=== PATIENT | male | born 1940 | race Caucasian/White ===

== ENCOUNTER 2017-02-07 10:30 | Emergency (ER) | payer MEDICARE, BC ==
[~2017-02-07] VITALS: Ht 175.3 cm; Wt 75.0 kg
[~2017-02-07 10:30] MED LIST: ASPIRIN 32325 MG/TA1 PO; CIPRO 500MG TA500 MG PO; ZOCOR 20MG20 MG PO
[2017-02-07 10:37] VITALS: TEMP 98
[2017-02-07 11:32] LABS: BASO % 0.3 % (0.0-2.0); EOS % 0.1 % (0-4.0); GRAN # 11.2 (1.4-6.5); GRAN % 79.3 % (42.2-75.2); HEMATOCRIT 47.5 % (42.0-52.0); HEMOGLOBIN 16.5 g/dl (13.5-18.0); LYMPH # 2.3 (1.2-3.4); MEAN CELL VOLUME 91 fl (80.0-100.0); MEAN CORPUSCULAR HEMOGLOBIN 32 pg (27.0-31.0); MEAN CORPUSCULAR HGB CONC 35 g/dl (33.0-37.0); MEAN PLATELET VOLUME 10.3 fl (7.4-10.4); MONO # 0.5 (0.1-0.6); MONO % 3.8 % (1.7-9.3); PLATELET COUNT 187 K/mm3 (130-400); RED BLOOD COUNT 5.23 M/mm3 (4.20-5.60); REDCELL DISTRIBUTION WIDTH-CV 13.3 % (11.5-14.5); WHITE BLOOD COUNT 14.2 K/mm3 (4.8-10.8)
[2017-02-07] MEDS ORDERED: ASPIRIN 81M81 MG/TA2 PO (11:42)
[2017-02-07] MEDS ORDERED: LIPITOR 40MG TA40 MG PO (11:42)
[2017-02-07 11:52] LABS: ADJUSTED CALCIUM 9.1 mg/dL (8.4-10.2); ALANINE AMINOTRANSFERASE 33 U/L (21-72); ALBUMIN 4.7 gm/dL (3.5-5.0); ALKALINE PHOSPHATASE 77 U/L (50-136); ANION GAP 14 mmol/L (7-16); BILIRUBIN,TOTAL 2.4 mg/dL (0.0-1.0); BLOOD UREA NITROGEN 23 mg/dL (9-20); C-REACTIVE PROTEIN < 0.5 mg/dL (0.0-0.9); CALCIUM 9.7 mg/dL (8.4-10.2); CARBON DIOXIDE 19 mmol/L (22-30); CHLORIDE 105 mmol/L (98-107); CREATININE, serum 1.06 mg/dL (0.66-1.25); GLUCOSE 130 mg/dL (74-106); LIPASE 63 U/L (23-300); SODIUM 138 mmol/L (137-145)
[2017-02-07 13:15] LABS: PH 8 (5-8); SQUAMOUS EPITHELIAL None Seen /hpf; URINE APPEARANCE Clear; URINE BACTERIA None Seen /hpf; URINE BILIRUBIN Negative (NEGATIVE); URINE BLOOD 1+ (NEGATIVE); URINE COLOR Yellow; URINE GLUCOSE Negative (NEGATIVE); URINE KETONE Trace (NEGATIVE); URINE UROBILINOGEN Negative (NEGATIVE); URINE WBC 0-2 /hpf
[2017-02-07] MEDS ORDERED: NORCO 325 MG-51 TAB PO (13:30)
[2017-02-07 13:33] VITALS: BP 130/55; PULSE 74
== END 2017-02-07 13:42 | disposition home or self-care (01) ==
LOC: COL.ER 10:30
PROVIDERS: Family Medicine
DX: N20.1 Calculus of ureter (principal)
CPT/HCPCS: J1170; J1885; J2405; J3010; J7030; Q9967

== ENCOUNTER → 2018-05-24 | Outpatient (CLI) | payer MEDICARE, BC ==
[~2018-05-24] MED LIST changes: +ASPIRIN 81M81 MG/TA2 PO; +LIPITOR 40MG TA40 MG PO; +NORCO 325 MG-51 TAB PO
== END ==
LOC: COL.RAD 09:07
DX: I71.4 Abdominal aortic aneurysm, without rupture (principal)

== ENCOUNTER 2018-11-26 16:51 | Observation (INO) | payer MEDICARE, BC ==
[~2018-11-26] VITALS: Ht 175.3 cm; Wt 75.2 kg
--- NOTE | 2018-11-26 17:30 | NUR ---
Pt arrived to room 317 ambulatory. Pt oriented to room and call light system. Will complete assessment. Dr. Orozco at the bedside. Will complete assessment.
[2018-11-26 17:34] LABS: HEMATOCRIT 41.2 % (42.0-52.0); HEMOGLOBIN 13.9 g/dl (13.5-18.0); MEAN CELL VOLUME 94 fl (80.0-100.0); MEAN CORPUSCULAR HEMOGLOBIN 32 pg (27.0-31.0); MEAN CORPUSCULAR HGB CONC 34 g/dl (33.0-37.0); MEAN PLATELET VOLUME 9.1 fl (7.4-10.4); PLATELET COUNT 211 K/mm3 (130-400); RED BLOOD COUNT 4.39 M/mm3 (4.20-5.60); REDCELL DISTRIBUTION WIDTH-CV 13.5 % (11.5-14.5)
[2018-11-26 17:44] LABS: ALBUMIN 3.9 gm/dL (3.5-5.0); BILIRUBIN,TOTAL 0.9 mg/dL (0.0-1.0); CALCIUM 9.2 mg/dL (8.4-10.2); CREATININE, serum 0.75 (0.66-1.25); POTASSIUM 4.5 mmol/L (3.4-5.0); TOTAL PROTEIN 6.6 gm/dL (6.4-8.2)
[2018-11-26 17:45] LABS: IRON,SERUM 167 ug/dL (35-150)
[2018-11-26 17:54] LABS: TOTAL IRON BINDING CAPACITY 305 ug/dL (261-462)
[2018-11-26] MEDS ORDERED: PRIL40 PO (17:56)
[2018-11-26 18:01] VITALS: BP 124/69; PULSE 91; TEMP 98.2
--- NOTE | 2018-11-26 18:54 | NUR ---
Since arriving to the floor the pt has been resting on and off. He has denied pain. He is sitting up in the bed waiting for his dinner to arrive and he denies further needs. Call light within reach. Report given to NATALYA Loo.
[2018-11-26 19:15] VITALS: BP 115/64; PULSE 98; TEMP 98
--- NOTE | 2018-11-26 19:44 | NUR ---
Patient resting in bed. Assessment completed- lungs clear, abdominal soundsa ctive, pulses +3, cap refill <3 seconds, no reports of pain. Discussed NPO status at midnight. Pt alert, oriented, and independent. Has no further needs at this time.
[2018-11-26 23:59] VITALS: BP 105/59; PULSE 79; TEMP 97.6
[2018-11-27] VITALS (9 sets, daily range): BP systolic 92–119; BP diastolic 45–60; PULSE 66–77; TEMP 97.5–98.3
--- NOTE | 2018-11-27 05:03 | NUR ---
Pt slept for most of the night, VSS, no reports of pain overnight. No needs at this time.
--- NOTE | 2018-11-27 06:44 | NUR ---
Report given to NATALYA Cook.
[2018-11-27 08:23] LABS: HEMOGLOBIN 12.3 g/dl (13.5-18.0)
[2018-11-27 08:24] LABS: HEMATOCRIT 35.6 % (42.0-52.0)
--- NOTE | 2018-11-27 08:35 | NUR ---
Assessment completed, alert/oriented, vital signs stable, denies any pain or discomfort, abdomen is soft/ BS+, reported having another dark stool this morning, hemaglobin stable/ this morning labs is pending, heart RRR/distal pulses are palpable, scheduled for EGD at 1300 / consent is signed, he has been NPO, he is resting quietly in bed and denies other needs at this time
--- NOTE | 2018-11-27 12:00 | NUR ---
Patient going down to [facility] for EGD at [facility]
--- NOTE | 2018-11-27 12:11 | NUR ---
Initial visit; Patient thanked Bundle Shaker for looking in on him and offering God's blessings.
--- NOTE | 2018-11-27 13:33 | NUR ---
Patient arrived back to Medical floor from [facility] at this time, he is alert/oriented but drowsy, vital signs stable, will continue to monitor
--- NOTE | 2018-11-27 14:10 | NUR ---
TEJAL and SW student met with the patient to discuss discharge plan. The patient lives in [place] with his , Hilaria. He reports independence with ADLs and does not use any DME. The patient's PCP is Dr. Orozco and he receives his medications at [facility]. He reports no difficulties obtaining his meds. The patient does not have advanced directives, but he was interested in obtaining a DPOA-HC form for himself and his . TEJAL provided. The patient plans to return home with his upon discharge. No additional needs at this time.
--- NOTE | 2018-11-27 19:03 | NUR ---
Report received from NATALYA Cook
--- NOTE | 2018-11-27 19:58 | NUR ---
Resting in bed. Assessment complete. Lungs clear. Heart sounds normal. Bowels active x4. Pulses strong throughout. No edema noted. Denies pain. Denies needs at this time. INT to right hand flushes without complications.
--- NOTE | 2018-11-27 23:54 | NUR ---
Resting in bed. Denies pain. Denies needs. Call light in reach.
[2018-11-28 00:33] VITALS: BP 98/48; PULSE 78; TEMP 97.7
--- NOTE | 2018-11-28 04:04 | NUR ---
Resting in bed. Denies needs. Call light in reach.
[2018-11-28 05:14] VITALS: BP 108/58; PULSE 83; TEMP 97.5
--- NOTE | 2018-11-28 06:02 | NUR ---
Patient had uneventful night. Resting in bed this AM. Call light in reach.
[2018-11-28 06:05] LABS: HEMOGLOBIN 11.4 g/dl (13.5-18.0)
[2018-11-28 06:09] LABS: HEMATOCRIT 33.6 % (42.0-52.0)
--- NOTE | 2018-11-28 06:43 | NUR ---
Report given to NATALYA Cook
[2018-11-28 07:03] VITALS: BP 114/57; PULSE 72; TEMP 97.8
--- NOTE | 2018-11-28 07:55 | NUR ---
Pt is currently lying in bed with HOB elevated A&O x4. Pt remains on RA w/ no c/o of SOA at this time. Pt has no c/o pain and requested apple juice for breakfast until clar liquid diet is d/c'd. Pt is anxious for physcian to make rounds so that pt has clarificaton on d/c time and date. Pt has no further requests at this time. Call light in reach, bed in lowest position, bed rails in place x2.
[2018-11-28] MEDS ORDERED: PROTONIX 40MG T40 MG PO (09:41)
[2018-11-28] MEDS ORDERED: NATURAL IRON65 MG PO (09:41)
--- NOTE | 2018-11-28 11:37 | NUR ---
discharge isntructions reviewed with the patient, instructed to follow up with as scheduled, instructed to take meds as prescribed/ ordered, HOLD ASA for now, IV removed, also explained to have H&H checked on saturday 12/02, also explained that with taking iron supplement he may notice more dark stools and this is likely related to the iron, denies needs, verbalized understanding of instrucitons, DIRECTOR STERILE PROCESSING escorted him out to the vehicle
--- NOTE | 2018-11-28 12:16 | NUR ---
Primary nurse was assisted with [id number] patient care by [employer] student Alesha Kenny and [employer] instructor Carmina Mari RN-.
== END 2018-11-28 11:39 | disposition home or self-care (01) ==
LOC: MEDICAL 16:51
PROVIDERS: ADMIT Emergency Medicine
DX: K26.7 Chronic duodenal ulcer without hemorrhage or perforation (principal); D50.0 Iron deficiency anemia secondary to blood loss (chronic); K92.1 Melena; Z85.46 Personal history of malignant neoplasm of prostate; E78.5 Hyperlipidemia, unspecified; G43.909 Migraine, unspecified, not intractable, without status migrainosus; K29.70 Gastritis, unspecified, without bleeding; N52.9 Male erectile dysfunction, unspecified; J30.9 Allergic rhinitis, unspecified; M19.90 Unspecified osteoarthritis, unspecified site; G47.33 Obstructive sleep apnea (adult) (pediatric); K21.9 Gastro-esophageal reflux disease without esophagitis
CPT/HCPCS: C9113; G0378; J2250; J3010

== ENCOUNTER 2020-11-18 21:02 | Observation (INO) | payer MEDICARE, BC ==
[~2020-11-18] VITALS: Ht 175.3 cm; Wt 75.0 kg
[~2020-11-18 21:02] MED LIST changes: +NATURAL IRON65 MG PO; +PRIL40 PO; +PROTONIX 40MG T40 MG PO
[2020-11-18 21:26] LABS: BASO % 0.3 % (0.0-2.0); EOS # 0.3 (0.0-0.7); EOS % 2.8 % (0-4.0); GRAN # 4.5 (1.4-6.5); GRAN % 48.2 % (42.2-75.2); HEMATOCRIT 46.3 % (42.0-52.0); LYMPH # 3.8 (1.2-3.4); LYMPH % 40.3 % (20.0-51.0); MEAN CELL VOLUME 87 fl (80.0-100.0); MEAN CORPUSCULAR HEMOGLOBIN 28 pg (27.0-31.0); MEAN CORPUSCULAR HGB CONC 32 g/dl (33.0-37.0); MEAN PLATELET VOLUME 8.8 fl (7.4-10.4); MONO # 0.8 (0.1-0.6); MONO % 8.1 % (1.7-9.3); PLATELET COUNT 251 K/mm3 (130-400)
[2020-11-18 21:37] LABS: INR 1.1 (0.8-3.0); PROTHROMBIN TIME 12.3 SECONDS (9.7-12.8)
[2020-11-18 21:38] LABS: ALANINE AMINOTRANSFERASE 30 U/L (4-49); ALBUMIN 4.3 gm/dL (3.5-5.0); ALKALINE PHOSPHATASE 73 U/L (50-136); ANION GAP 11 mmol/L (7-16); AST,SGOT 45 U/L (15-37); BILIRUBIN,TOTAL 0.6 mg/dL (0.0-1.0); BLOOD UREA NITROGEN 25 mg/dL (9-20); CALCIUM 9.4 mg/dL (8.4-10.2); CARBON DIOXIDE 28 mmol/L (22-30); CHLORIDE 103 mmol/L (98-107); CREATINE KINASE 144 U/L (55-170); CREATININE, serum 0.83 (0.66-1.25); GLUCOSE 116 mg/dL (74-106); LIPASE 96 U/L (23-300); POTASSIUM 3.5 mmol/L (3.4-5.0); SODIUM 141 mmol/L (137-145); TOTAL PROTEIN 7.6 gm/dL (6.4-8.2)
[2020-11-18 21:51] LABS: TROPONIN-I < 0.012 ng/mL (0.000-0.035)
[2020-11-19] MEDS ORDERED: TYLENOL 325MG325 MG PO (01:04)
[2020-11-19 06:45] VITALS: BP 126/76; PULSE 63
[2020-11-19 07:52] LABS: HEMATOCRIT 43.6 % (42.0-52.0); MEAN CELL VOLUME 88 fl (80.0-100.0); MEAN CORPUSCULAR HEMOGLOBIN 28 pg (27.0-31.0); MEAN CORPUSCULAR HGB CONC 32 g/dl (33.0-37.0); PLATELET COUNT 208 K/mm3 (130-400); RED BLOOD COUNT 4.93 M/mm3 (4.20-5.60); REDCELL DISTRIBUTION WIDTH-CV 14.1 % (11.5-14.5)
[2020-11-19 08:12] LABS: ANION GAP 5 mmol/L (7-16); BLOOD UREA NITROGEN 19 mg/dL (9-20); CALCIUM 8.7 mg/dL (8.4-10.2); CARBON DIOXIDE 27 mmol/L (22-30); CHLORIDE 106 mmol/L (98-107); CHOLESTEROL 152 mg/dL (120-200); CREATININE, serum 0.69 (0.66-1.25); GLUCOSE 110 mg/dL (74-106); HDL CHOLESTEROL 30 mg/dL; LDL CHOLESTEROL 99 mg/dL; POTASSIUM 3.9 mmol/L (3.4-5.0); SODIUM 138 mmol/L (137-145); TRIGLYCERIDE 116 mg/dL
--- NOTE | 2020-11-19 08:20 | NUR ---
Patient to room from ER via wheelchair. Transfers self from wheelchair to bed. Alert and oriented x4. Denies pain. Patient had removed his IV himself when he was leaving ER. IV to be restarted at this time. Lungs CTA. HRR. No skin issues. Oriented to room. at bedside.
[2020-11-19 08:30] LABS: TROPONIN-I < 0.012 ng/mL (0.000-0.035)
--- NOTE | 2020-11-19 08:37 | NUR ---
Patient to nuclear medicine for Lexiscan via wheelchair at this time.
[2020-11-19 09:07] VITALS: BP 121/69; PULSE 83
[2020-11-19 09:08] VITALS: BP 130/69; PULSE 74
[2020-11-19 09:09] VITALS: BP 132/67; PULSE 76
--- NOTE | 2020-11-19 09:48 | NUR ---
Patient back to room via wheelchair from [employer].
--- NOTE | 2020-11-19 10:17 | NUR ---
Lying in bed with eyes open. Denies pain at this time. Connect to fluids as prescribed. Patient able to take aspirin. Dr. Goldman calls and explains that he reviewed the patient scan and patient is low risk, co cardiac wall abnormalities noted, EF 55%. Patient updated and it was explained that the hospitalist team will come by to see him. Lab in room. Patient denies additional needs at this time.
[2020-11-19 10:35] VITALS: BP 145/63; PULSE 67; TEMP 98.1
[2020-11-19] MEDS ORDERED: PEPCID40 MG PO (11:09)
--- NOTE | 2020-11-19 11:16 | NUR ---
TEJAL met with the patient and his , Hilaria (ph#[phone]), to discuss discharge plan. The patient lives in [place] with his . He reports independence with ADLs and does not have any DME. The patient's PCP is Dr. Guy Orozco and he receives his medications from [facility]. He reports no difficulties obtaining his meds. The patient does not have a DPOA-HC, but he was interested in obtaining a form. TEJAL provided. The patient plans to return home with his upon discharge. No additional needs at this time.
--- NOTE | 2020-11-19 12:14 | NUR ---
Review all discharge instructions with the patient and his . Questions answered. Patient verbalizes understanding and signs discharge paperwork. Patient has all personal belongings. Ambulates out to POV with this nurse and his .
== END 2020-11-19 12:14 | disposition home or self-care (01) ==
LOC: COL.ER 21:02 → MEDICAL 22:31
PROVIDERS: Emergency Medicine; Physician Assistant; ADMIT Internal Medicine
DX: R07.9 Chest pain, unspecified (principal); K21.9 Gastro-esophageal reflux disease without esophagitis; I71.4 Abdominal aortic aneurysm, without rupture; Z79.899 Other long term (current) drug therapy
CPT/HCPCS: A9500; G0378; J1650; J2785; J7030

== ENCOUNTER → 2021-10-31 | Outpatient (CLI) | payer MEDICARE, BC, OTHER ==
[~2021-10-31] MED LIST changes: +PEPCID40 MG PO; +TYLENOL 325MG325 MG PO
== END ==
LOC: COL.RAD 08:53
DX: I71.4 Abdominal aortic aneurysm, without rupture (principal)

== ENCOUNTER 2024-04-02 15:20 | Emergency (ER) | payer MEDICARE, BC ==
[~2024-04-02] VITALS: Ht 175.3 cm; Wt 77.3 kg
[2024-04-02 15:26] VITALS: TEMP 97.5
[2024-04-02] MEDS ORDERED: NS 500 ML IV ONE (15:45)
[2024-04-02 15:56] LABS: BASO % 0.5 % (0.0-2.0); EOS # 0.2 K/mm3 (0.0-0.7); EOS % 3.6 % (0.0-4.0); GRAN % 64.9 % (42.2-75.2); HEMATOCRIT 44.2 % (42.0-52.0); HEMOGLOBIN 14.7 g/dl (13.5-18.0); LYMPH # 1.4 K/mm3 (1.2-3.4); LYMPH % 23.3 % (20.0-51.0); MEAN CELL VOLUME 93 fl (80.0-100.0); MEAN CORPUSCULAR HEMOGLOBIN 31 pg (27-31); MEAN CORPUSCULAR HGB CONC 33 g/dl (33.0-37.0); MONO # 0.5 K/mm3 (0.1-0.6); MONO % 7.5 % (1.7-9.3); PLATELET COUNT 215 K/mm3 (130-400); RED BLOOD COUNT 4.77 M/mm3 (4.20-5.60); REDCELL DISTRIBUTION WIDTH-CV 14.2 % (11.5-14.5)
[2024-04-02 16:16] LABS: ALANINE AMINOTRANSFERASE 17 U/L (0-55); ALBUMIN 3.8 g/dL (3.4-4.8); ALKALINE PHOSPHATASE 71 U/L (40-150); ANION GAP 7 mmol/L (7-16); AST,SGOT 23 U/L (5-34); BILIRUBIN,TOTAL 0.9 mg/dL (0.2-1.2); BLOOD UREA NITROGEN 20 mg/dL (8-26); CALCIUM 8.7 mg/dL (8.4-10.2); CHLORIDE 112 mEq/L (98-107); CREATININE, serum 0.85 mg/dL (0.72-1.25); GLUCOSE 100 mg/dL (70-99); MAGNESIUM 2.2 mg/dL (1.6-2.6); SODIUM 141 mEq/L (136-145); TOTAL PROTEIN 6.6 g/dl (6.2-8.1)
[2024-04-02 16:41] LABS: TROPONIN-I < 0.010 ng/mL (0.00-0.033)
[2024-04-02 17:40] VITALS: BP 134/69; PULSE 64
== END 2024-04-02 17:40 | disposition home or self-care (01) ==
LOC: COL.ER 15:20
PROVIDERS: Emergency Medicine
DX: R42 Dizziness and giddiness (principal)
CPT/HCPCS: J7040